=== PATIENT | female | born 1985 | race Caucasian/White ===

== ENCOUNTER 2018-05-23 10:40 | Emergency (ER) | payer OTHER, MEDICAID ==
[~2018-05-23] VITALS: Ht 162.6 cm; Wt 79.0 kg
[~2018-05-23 10:40] MED LIST: FERR-43 PO
[2018-05-23 11:11] VITALS: BP 110/71
[2018-05-23] MEDS ORDERED: LEVO88TA7 MT (11:11)
== END 2018-05-23 13:07 | disposition home or self-care (01) ==
LOC: ER 10:40
DX: L03.119 Cellulitis of unspecified part of limb (principal); E03.9 Hypothyroidism, unspecified; Z98.890 Other specified postprocedural states
CPT/HCPCS: 81025; 99283